=== PATIENT | female | born 1990 ===

== ENCOUNTER 2020-07-08 10:15 | Outpatient (RCR) | payer OTHER, SELFPAY ==
[2020-06-20 11:55] VITALS: BMI 28.3
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
--- NOTE | 2020-06-24 12:56 | PC.NURSE ---
Called patient to let her know that the PA on Vraylar has been approved. In addition, patient reported she has a migraine h/a and is going to rest.
--- NOTE | 2020-06-26 16:11 | PC.NURSE ---
Pt called, and I spoke to her about aftercare. She agreed to a referral to [facility]. With her permission, I called [facility], spoke to Neli, and put in a referral.
--- NOTE | 2020-06-27 10:52 | PC.NURSE ---
Patient called out sick today stated she was vomiting all night. Reviewed with Brenda Gutierrez patient to stop taking Vraylar. Patient stated the medication 2 days aog. Spoke to Rosibel and told her to stop the Vraylar. She stated she has not vomited since last night and she has been sleeping. Encouraged patient to drink fluids and if she continues vomiting to call her PCP. Patient agreed. Asked if patient was feeling safe and she stated she was. Patient plans on coming to the program on Tuesday and will f/u with the PHP prescriber next week.
--- NOTE | 2020-06-27 14:28 | HO.PHPPROGNO ---
Subjective Subjective Date of Service: 06/27/20 Reason For Visit: depression Interim History: Pt continues to endorse depressed mood, anhedonia, poor slee. She reports taking vraylar x 4 days, having nausea and vomiting, although thinks it may be getting better. Pt advised to continue vraylar as GI side effects may subside. She denies SI. She does reports explosive behaviors a re a problem a long with depressed mood. She has been on trileptal in the past with good effect. We discussed starting trileptal, which she agreed. Medication Compliance: Yes Side effects from medications: Yes (nausea) Attending Groups: Yes Review of Systems Gastrointestinal: Reports nausea Diagnostics Vital Signs (24Hr): Body Mass Index 28.3 Assessment & Plan Assessment & Plan (1) Bipolar disorder: Qualifiers: Active/Remission status: currently active Current bipolar episode type: depressed Current episode severity: moderate Qualified Code(s): F31.32 - Bipolar disorder, current episode depressed, moderate Status: Acute Code(s): F31.9 - Bipolar disorder, unspecified Assessment and Plan: 1. Continue Vraylar 2. Start trileptal 150mg po BID 3. Take ativan at bedtime/ (2) PTSD (post-traumatic stress disorder): Status: Acute Code(s): F43.10 - Post-traumatic stress disorder, unspecified Patient educated on: diagnosis and medication risk/benefits Informed Consent: understands Certification I certify that partial hospital treatment is medically necessary due to the symptoms and problems resulting from the patient's mental illness and the failure to treat the patient at the partial hospital level of care would likely result in the patient requiring inpatient psychiatric care which could not be prevented at a less intensive level of care. Greater than 50% of the session was spent on counseling and/or coordination of care Discharge Plan Discharge Attending provider: Shelton Tam Medications: New Vraylar 3 mg capsule 3 mg PO DAILY Qty: 10 RF: 0 oxcarbazepine [Trileptal] 150 mg tablet 150 mg PO BID Qty: 14 RF: 0 No Action lorazepam 0.5 mg Tablet 0.5 mg PO BID RF: 0 paroxetine HCl [Paxil] 20 mg Tablet 20 mg PO DAILY RF: 0 oxycodone 30 mg Tablet 30 mg PO Q3H PRN (Reason: Pain) RF: 0 albuterol sulfate [ProAir HFA] 90 mcg/actuation Hfa Aerosol Inhaler 2 puff INHALATION Q6H PRN (Reason: Shortness Of Breath) RF: 0 oxycodone [OxyContin] 10 mg Tablet,Oral Only,Ext.Rel.12 Hr 10 mg PO BID RF: 0 Ubrelvy 100 mg Tablet 100 mg PO DAILY RF: 0 Telehealth Telehealth Location of provider rendering services: practice address Location of patient: address on file Patient Identification confirmed using: Name, : Yes Telehealth method: video Patient verbally consented to treatment: Yes Patient verbally consented to billing insurance company: Yes Patient informed of any privacy concerns related to visit: Yes Time spent with patient (mins): 15
--- NOTE | 2020-06-30 16:38 | HO.PHPPROGNO ---
Subjective Subjective Date of Service: 06/30/20 Reason For Visit: depression Interim History: Reports some improvement, symptoms are a little better. Main symptoms are depression and anger- you know the little things that there is no reason to be angry . Finding PHP helpful Sleep she reports is improving Appetite has increased to 2 meals daily Denies SI Denies medical concerns-after first dose of Vraylar expereinced GI SE, retrospectively, pt believes it was a sx of food intolerance as this subsided after this one instance. Discussed Vraylar titration, which she is open to-to manage ongoing mood sx. Trileptal helpful as well-for sleep. Denies substance use Medication Compliance: Yes Side effects from medications: No Attending Groups: Yes Review of Systems Review of Systems Yes all other systems are reviewed and are negative (denies) Psychiatric: Reports depression and Reports mood swings Mental Status Exam Mental Status Exam Patient Appearance: Appropriate Patient Orientation: Person, Place, Time and Situation Level of Consciousness: Alert Patient Behavior: Appropriate, Talkative and Cooperative Mood Description: Flat Affect Description: Flat Patient Cognition Impaired: No Ability to Follow Directions: Good Speech Pattern: Spontaneous Speech Memory Description: Intact Hallucinations: None Delusions: Not Present Thought Process: Intact Thought Content: positive for Intact Depressive Symptoms: Increased Irritability, Changes in Appetite and Thoughts of /Suicide (denies) Judgement: Good Diagnostics Vital Signs (24Hr): Body Mass Index 28.3 Assessment & Plan Assessment & Plan (1) Bipolar disorder: Qualifiers: Active/Remission status: currently active Current bipolar episode type: depressed Current episode severity: moderate Qualified Code(s): F31.32 - Bipolar disorder, current episode depressed, moderate Status: Acute Code(s): F31.9 - Bipolar disorder, unspecified Assessment and Plan: -Increase Vraylar from 3 mg HS to 4.5 mg HS (2) PTSD (post-traumatic stress disorder): Status: Acute Code(s): F43.10 - Post-traumatic stress disorder, unspecified Certification I certify that partial hospital treatment is medically necessary due to the symptoms and problems resulting from the patient's mental illness and the failure to treat the patient at the partial hospital level of care would likely result in the patient requiring inpatient psychiatric care which could not be prevented at a less intensive level of care. Greater than 50% of the session was spent on counseling and/or coordination of care Discharge Plan Discharge Attending provider: Shelton Tam Medications: New oxcarbazepine [Trileptal] 150 mg tablet 150 mg PO BID Qty: 14 RF: 0 Vraylar 4.5 mg capsule 4.5 mg PO DAILY Qty: 14 RF: 0 No Action lorazepam 0.5 mg Tablet 0.5 mg PO BID RF: 0 paroxetine HCl [Paxil] 20 mg Tablet 20 mg PO DAILY RF: 0 oxycodone 30 mg Tablet 30 mg PO Q3H PRN (Reason: Pain) RF: 0 albuterol sulfate [ProAir HFA] 90 mcg/actuation Hfa Aerosol Inhaler 2 puff INHALATION Q6H PRN (Reason: Shortness Of Breath) RF: 0 oxycodone [OxyContin] 10 mg Tablet,Oral Only,Ext.Rel.12 Hr 10 mg PO BID RF: 0 Ubrelvy 100 mg Tablet 100 mg PO DAILY RF: 0 Telehealth Telehealth Location of provider rendering services: practice address Location of patient: address on file Patient Identification confirmed using: Name, : Yes Telehealth method: video Patient verbally consented to treatment: Yes Patient verbally consented to billing insurance company: Yes Patient informed of any privacy concerns related to visit: Yes Time spent with patient (mins): 15
--- NOTE | 2020-07-01 14:31 | PC.NURSE ---
I called [facility] and they informed me of pt's followup appts for therapy and med management. I called pt and informed her of her appts as well. (See Discharge note for appt times and dates).
--- NOTE | 2020-07-03 12:01 | PC.NURSE ---
Patient called this morning with c/o blurred vision. Patient attributes this to Vraylar medication and stated the medication was increased to 4.5 mg daily. She stated she did not take the medication last night as a result of the side effect. Joceline Damian APRN is aware and has a telehealth appointment with patient at 1300 today to f/u.
--- NOTE | 2020-07-03 17:17 | P.EN_ITS ---
Event Note Date of Service: 07/03/20 Event Note: Pt reports blurred vision. As a result she held Vraylar sandoval mccoy ng. Reports that when her dosage increased to 4.5 mg symptoms became worse. She would like to stop it and continue with Trileptal as she is more familiar with this medication.
--- NOTE | 2020-07-07 13:27 | HO.PHPPROGNO ---
Subjective Subjective Date of Service: 07/07/20 Reason For Visit: depression Interim History: The patient reported that she had blurred vision with Vraylar and she has stopped it. She is only Trileptal 150 mg po bid and she reported no new symptoms. She reported feeling better only with Trileptal. Medication Compliance: Yes Side effects from medications: Yes Review of Systems Review of Systems Yes all other systems are reviewed and are negative, unobtainable due to endotracheal tube, Unobtainable due to mental condition, Unobtainable due to mental status and Other Mental Status Exam Mental Status Exam Patient Orientation: Person, Place, Time and Situation Level of Consciousness: Awake Patient Behavior: Appropriate Mood Description: Calm Affect Description: Calm Patient Cognition Impaired: No Ability to Follow Directions: Good Speech Pattern: Clear Memory Description: Intact Hallucinations: None Delusions: Not Present Diagnostics Vital Signs (24Hr): Body Mass Index 28.3 Assessment & Plan Certification I certify that partial hospital treatment is medically necessary due to the symptoms and problems resulting from the patient's mental illness and the failure to treat the patient at the partial hospital level of care would likely result in the patient requiring inpatient psychiatric care which could not be prevented at a less intensive level of care. Greater than 50% of the session was spent on counseling and/or coordination of care Discharge Plan Discharge Attending provider: Shelton Tam Additional Instructions: Phone appt for intake for therapist at [facility] is on 07/10/2020 at 9am. Phone appt for psychiatric evaluation with Yaya Fu at [facility] on 07/23/2020. Phone appt for med management followup with Yaya Fu at [facility] is on 09/11/2020 at 3pm. Medications: New oxcarbazepine [Trileptal] 150 mg tablet 150 mg PO BID Qty: 14 RF: 0 Continued lorazepam 0.5 mg Tablet 0.5 mg PO BID RF: 0 paroxetine HCl [Paxil] 20 mg Tablet 20 mg PO DAILY RF: 0 oxycodone 30 mg Tablet 30 mg PO Q3H PRN (Reason: Pain) RF: 0 albuterol sulfate [ProAir HFA] 90 mcg/actuation Hfa Aerosol Inhaler 2 puff INHALATION Q6H PRN (Reason: Shortness Of Breath) RF: 0 oxycodone [OxyContin] 10 mg Tablet,Oral Only,Ext.Rel.12 Hr 10 mg PO BID RF: 0 Discontinued Ubrelvy 100 mg Tablet 100 mg PO DAILY RF: 0 Telehealth Telehealth Location of provider rendering services: practice address Location of patient: address on file Patient Identification confirmed using: Name, : Yes Telehealth method: voice only Patient verbally consented to treatment: Yes Patient verbally consented to billing insurance company: Yes Patient informed of any privacy concerns related to visit: Yes Time spent with patient (mins): 20
== END 2020-07-08 23:55 | disposition home or self-care (01) ==
LOC: HO.PHPA 10:15
PROVIDERS: Visit Provider Psychiatry & Neurology Psychiatry
DX: F43.10 Post-traumatic stress disorder, unspecified (principal); F31.32 Bipolar disorder, current episode depressed, moderate
CPT/HCPCS: 90791; 90853; 99213

== ENCOUNTER 2022-11-05 11:08 | Emergency (ER) | payer OTHER, SELFPAY ==
--- NOTE | ~2022-11-05 | XR_ITS ---
EXAMINATION: XR CHEST CLINICAL INFORMATION: Chest pain. COMPARISON: 08/17/2015 chest radiographs. TECHNIQUE: 2 views of the chest were obtained. FINDINGS: The lungs are clear. There are no pleural effusions. The heart and mediastinal structures are unremarkable. Mild thoracic dextro scoliosis without significant change. XR/XR chest 2V IMPRESSION: No acute cardiopulmonary process.
--- NOTE | 2022-11-05 11:11 | ED.GENADULT ---
HPI - General Adult General Chief complaint: Chest Pain Stated complaint: chest pain Time Seen by Provider: 11/05/22 12:45 Source: patient Mode of arrival: ambulatory Limitations: no limitations History of Present Illness HPI narrative: Patient is a 32 year old assigned female at with a history of kidney disease, asthma, and PTSD presenting to the emergency department today with chest pain. Patient states that she has been having central chest pain over the last 3 days that does not radiate anywhere. Patient denies any dizziness, lightheadedness, abdominal pain, nausea, vomiting, fever, chills, blurry vision, double vision, loss of vision, difficulty breathing, shortness of breath, back pain, night sweats, pain with urination, increased urinary frequency, increased urinary urgency, blood in her urine or stool, syncope or a near syncopal episode, recent trauma or falls, bowel incontinence, bladder incontinence, bowel retention, bladder retention, or any other complaints at this time. Onset (ago): day(s) (3) Location: chest Radiation: non-radiation Severity: mild Severity scale (1-10): 4 Quality: aching and dull Pain Consistency: constant Relieving factors: none Exacerbating factors: none Associated symptoms: chest pain Treatments prior to arrival: none Related Data Home Medications Medication Instructions Recorded Confirmed albuterol sulfate 90 mcg/actuation 2 puff inhalation Q6H PRN 06/20/20 06/20/20 aerosol inhaler (ProAir HFA) Shortness Of Breath lorazepam 0.5 mg tablet 0.5 mg PO BID 06/20/20 06/20/20 oxycodone 10 mg tablet,crush 10 mg PO BID 06/20/20 06/20/20 resistant,extended release 12 hr (OxyContin) oxycodone 30 mg tablet 30 mg PO Q3H PRN Pain 06/20/20 06/20/20 paroxetine HCl 20 mg tablet (Paxil) 20 mg PO DAILY 06/20/20 06/20/20 Previous Rx's Medication Instructions Recorded oxcarbazepine 150 mg tablet 150 mg PO BID #14 tabs 06/27/20 (Trileptal) cyclobenzaprine 5 mg tablet 5 mg PO TID PRN muscle spasm 7 11/05/22 days #21 tabs omeprazole 20 mg capsule,delayed 20 mg PO DAILY #14 caps 11/05/22 release Allergies Allergy/AdvReac Type Severity Reaction Status Date / Time clindamycin [CLINDAMYCIN] Allergy Unknown ANAPHYLAXIS Unverified 12/27/19 15:57 NSAIDS (Non-Steroidal Allergy Unknown kidney Unverified 12/27/19 15:57 Anti-Inflamma issues [NSAIDS (NON-STEROIDAL ANTI-INFLAMMA] zolpidem [ZOLPIDEM] Allergy Unknown HALLUCINATE Unverified 12/27/19 15:57 cariprazine [From Vraylar] AdvReac Intermediate Blurring Verified 07/03/20 17:22 of vision-increased at dosage of 4.5 mg Clindamycin HCl Allergy Unknown swollen Uncoded 08/23/16 00:00 throat Review of Systems Constitutional: Constitutional: Reports no additional constitutional complaints, Denies chills, Denies fever(s) and Denies night sweats Eyes: Eyes: Reports no additional eye complaints, Denies blurry vision, Denies change in vision, Denies diplopia, Denies eye discharge, Denies loss of vision and Denies eye pain ENT: Denies dizziness Cardiovascular: Cardiovascular: Reports no additional cardiovascular complaints, Denies chest pain, Denies lightheadedness, Denies Loss of Consciousness and Denies dyspnea Respiratory: Respiratory: Reports no additional respiratory complaints and Denies dyspnea Gastrointestinal: Gastrointestinal: Reports no additional gastrointestinal complaints, Denies abdominal pain, Denies melena, Denies hematochezia, Denies change in bowel habits and Denies change in stool character Genitourinary: Genitourinary: Denies hematuria, Denies urinary frequency, Denies dysuria, Denies urinary incontinence, Denies urinary hesitancy and Denies urinary urgency Musculoskeletal: Musculoskeletal: Reports no additional musculoskeletal complaints, Denies numbness and Denies tingling Neurologic: Denies dizziness, Denies loss of vision, Denies numbness and Denies tingling Psychiatric: Psychiatric: Reports no additional psychiatric complaints Endocrine: Endocrine: Reports no additional endocrine complaints Hematologic/Lymphatic: Hematologic/Lymphatic: Reports no additional hematologic/lymphatic complaints Allergic/Immunologic: Allergic/Immunologic: Reports no additional allergic/immunologic complaints PMFSH Past Medical History Attestation statement: The following information was validated with the patient. Source: old records reviewed and nursing notes reviewed Medical History Anemia Arthritis Asthma Bipolar disorder Cervical cancer IgA nephropathy Kidney disease Migraine Nutcracker phenomenon of renal vein PTSD (post-traumatic stress disorder) Recurrent hematuria Recurrent UTI Surgical History H/O tubal ligation History of kidney surgery History of tonsillectomy Hx of appendectomy S/P LEEP of cervix Social History Social History Household Members: Family Cigarettes Per Day: 10 Years Smoked: Since age 16 Advance Directives: No Advance Directives Information Provided: No Physical Exam ED Vital Signs: Vital Signs - 24 hr 11/05/22 11:12 Temperature 97.9 F Pulse Rate 79 Respiratory Rate 18 Blood Pressure 109/77 Pulse Oximetry 99 Oxygen Delivery Method Room Air BMI result Body Mass Index 29.3 Const General: cooperative, no acute distress, alert and awake Nutritional Appearance: well nourished Orientation/consciousness: patient oriented x3 Limitations: no limitations HENMT Head: Yes normal to inspection and Yes atraumatic Ears: hearing grossly normal bilaterally and external ears normal General nose exam: Normal external nose present, no nasal discharge noted and no epistaxis Face and sinus: Yes normal facial exam, No abrasion and No laceration Mouth: Normal oral and palatal mucosa present, no drooling and no muffled voice Eyes General: appearance normal, both eyes and all related structures Periorbital: periorbital findings normal Eyelids: Yes eyelids normal Conjunctivae: conjunctivae normal Pupils: Equal, round and reactive pupils present EOM: EOMs intact bilaterally Neck Neck: Yes normal visual inspection, Yes full ROM and Yes no lymphadenopathy Chest Chest palpation & inspection: normal inspection of the chest Resp Effort & Inspection: normal respiratory effort and able to speak in complete sentences Auscultation: clear to auscultation bilaterally Cardio Rate: regular rate Rhythm: regular rhythm GI Inspection: Yes normal to inspection Neuro General: patient oriented x3 and moves all extremities Cranial nerves: Yes Equal, round and reactive pupils present Cognition (Neuro): normal cognition Motor exam (neuro): 5/5 motor strength present throughout Sensory Exam: Normal double simultaneous stimulation for sensation Coordination: ohltbi-it-dopt test normal Extrem General: Yes normal to inspection, Yes full ROM and Yes capillary refill normal Psych Appearance: grossly normal Mental Status: mental status grossly normal Affect: normal affect Attitude: cooperative Thought process: Normal thought process present Thought content: Normal thought content present Insight: Good insight present (Psych) Course Course Course Narrative: This is a rapid medical exam: Additional HPI, ROS, PE not included below will be deferred to primary provider. Patient is a 32-year-old female presenting to the ED with complaint of three days of chest pain and pressure between shoulder blades but pain does not go through to her back. Denies personal or family history of blood clots. Has tried splinting with pillow without relief. Plan: EKG, labs, CXR Medical Decision Making Medical Decision Making [facility] Narrative: Patient is a 32 year old assigned female at with a history of PTSD, asthma, and kidney disease presenting to the emergency department today with central chest pain. Patient's physical exam was unremarkable. Patient's blood work was unremarkable. Patient's urine showed no acute process. Patient's EKG was unremarkable. Patient's chest x-ray showed no acute process. I explained my physical exam findings as well as all test results to the patient. I answered all questions asked by the patient. Patient's clinical presentation is consistent with atypical chest pain. Will treat as musculoskeletal vs. GERD. I stressed the importance of the patient taking her medication as prescribed. I stressed the importance of the patient following up with her primary care provider. I stressed the importance of the patient returning to the emergency department immediately if her symptoms were to worsen or if she were to develop any dizziness, shortness of breath, difficulty breathing, chest pain, blurry vision, loss of vision, nausea, vomiting, abdominal pain, fever, chills, back pain, or any other complaints. Patient verbalized agreement and understanding with this treatment plan and discharge. Differential Diagnosis Differential Diagnoses: The differential diagnosis associated with the presentation includes Chest pain NSTEMI STEMI GERD Musculoskeletal pain Admission/Observation Consideration of admission/observation: Escalation of care including admission/observation considered Patient would have been admitted to the hospital had her work up had any findings where hospital admission was appropriate and her clinical presentation warranted hospital admission. Lab Data [facility] Lab Attestation statement: I reviewed the patient's lab results. My interpretation of these studies and their corresponding values is that they are grossly normal. 11/05/22 11:36 11/05/22 11:36 Labs: Lab Results 11/05/22 11/05/22 11/05/22 Range/Units 11:35 11:35 11:36 WBC 4.9 (4.8-10.8) X10*3/uL RBC 4.34 (4.20-5.50) X10*6/uL Hgb 13.5 (12.0-16.0) g/dl Hct 38.2 (37.0-47.0) % MCV 88.0 (80.0-98.0) fL MCH 31.1 (27.0-33.0) pg MCHC 35.3 H (31.0-35.0) g/dl RDW 13.2 (11.0-16.0) % Plt Count 256 (160-400) X10*3/uL MPV 10.3 (9.4-12.3) fL Immature Gran % (Auto) 0.2 (0.0-0.4) % Neut % (Auto) 45.6 (45-73) % Lymph % (Auto) 41.2 H (20-40) % Linn % (Auto) 10.7 (2-11) % Eos % (Auto) 1.9 (0-4) % Baso % (Auto) 0.4 (0-2) % Lymph # (Auto) 2.0 (1.2-4.9) X10*3/uL Linn # (Auto) 0.5 (0.1-1.2) X10*3/uL Eos # (Auto) 0.1 (0.0-0.4) X10*3/uL Baso # (Auto) 0.0 (0.0-0.2) X10*3/uL Abs Immat Gran (auto) 0.01 (0.00-0.03) X10*3/uL Absolute Neuts (auto) 2.2 (2.0-8.3) x10*3/uL Absolute Nucleated RBC 0.000 (0.0-0.012) X10*3/uL Nucleated RBC % (auto) 0.0 (0.0-0.2) /100WBC PT (11.1-13.3) SEC INR (0.9-1.1) Sodium (135-145) mmol/L Potassium (3.3-5.1) mmol/L Chloride (96-108) mmol/L Carbon Dioxide (22-29) mmol/L Anion Gap (12-20) BUN (9-16) mg/dL Creatinine (0.5-1.4) mg/dL Estim Creat Clear Calc Estimated GFR Random Glucose (60-115) mg/dL Calcium (8.4-10.2) mg/dL Troponin I High Sens < 2.7 (<3.5-17.0) ng/L Beta HCG, Quant < 2 mIU/mL 11/05/22 11/05/22 Range/Units 11:36 11:36 WBC (4.8-10.8) X10*3/uL RBC (4.20-5.50) X10*6/uL Hgb (12.0-16.0) g/dl Hct (37.0-47.0) % MCV (80.0-98.0) fL MCH (27.0-33.0) pg MCHC (31.0-35.0) g/dl RDW (11.0-16.0) % Plt Count (160-400) X10*3/uL MPV (9.4-12.3) fL Immature Gran % (Auto) (0.0-0.4) % Neut % (Auto) (45-73) % Lymph % (Auto) (20-40) % Linn % (Auto) (2-11) % Eos % (Auto) (0-4) % Baso % (Auto) (0-2) % Lymph # (Auto) (1.2-4.9) X10*3/uL Linn # (Auto) (0.1-1.2) X10*3/uL Eos # (Auto) (0.0-0.4) X10*3/uL Baso # (Auto) (0.0-0.2) X10*3/uL Abs Immat Gran (auto) (0.00-0.03) X10*3/uL Absolute Neuts (auto) (2.0-8.3) x10*3/uL Absolute Nucleated RBC (0.0-0.012) X10*3/uL Nucleated RBC % (auto) (0.0-0.2) /100WBC PT 12.1 (11.1-13.3) SEC INR 1.0 (0.9-1.1) Sodium 137 (135-145) mmol/L Potassium 3.8 (3.3-5.1) mmol/L Chloride 106 (96-108) mmol/L Carbon Dioxide 22 (22-29) mmol/L Anion Gap 13 (12-20) BUN 9 (9-16) mg/dL Creatinine 0.89 (0.5-1.4) mg/dL Estim Creat Clear Calc 74.8 Estimated GFR > 60 Random Glucose 90 (60-115) mg/dL Calcium 9.0 (8.4-10.2) mg/dL Troponin I High Sens (<3.5-17.0) ng/L Beta HCG, Quant mIU/mL Independent Interpretation I performed an independent interpretation of an: EKG and Plain X-Ray Interpretation: My interpretation is in agreement with the radiologist's impression of this imaging study. EXAMINATION: XR CHEST CLINICAL INFORMATION: Chest pain. COMPARISON: 08/17/2015 chest radiographs. TECHNIQUE: 2 views of the chest were obtained. FINDINGS: The lungs are clear. There are no pleural effusions. The heart and mediastinal structures are unremarkable. Mild thoracic dextro scoliosis without significant change. XR/XR chest 2V IMPRESSION: No acute cardiopulmonary process. Dictated By: Rob Tellez MD Signed By: Electronically signed by Rob Tellez MD 11/05/22 1124 Vent. Rate: 094 BPM ? ? Atrial Rate: 094 BPM P-R Int: 138 ms? QRS Dur: 082 ms QT Int: 348 ms ? ? ? P-R-T Axes: 059 032 035 degrees QTc Int: 435 ms ? Normal sinus rhythm Normal ECG When compared with ECG of 07-NOV-2012 16:31, No significant change was found ? Electronically Signed By:NETO CASTELAN MD Dictated By: Neto Castelan MD Signed By: Electronically signed by Neto Castelan MD 11/05/22 2415 Radiology Impression Discussion of test interpretation with radiology: I have reviewed the radiologist's reading. Discharge Plan Discharge Clinical Impression: Atypical chest pain Patient Disposition: Home, Self-Care Instructions: Chest Pain (ED) Additional Instructions: Follow up with your primary care provider. Return to the emergency department immediately if your symptoms worsen or if you develop any dizziness, shortness of breath, difficulty breathing, chest pain, blurry vision, loss of vision, nausea, vomiting, abdominal pain, fever, chills, back pain, or any other complaints. Prescriptions: New cyclobenzaprine 5 mg tablet 5 mg PO TID PRN (Reason: muscle spasm) 7 Days Qty: 21 0RF omeprazole 20 mg capsule,delayed release(DR/EC) 20 mg PO DAILY Qty: 14 0RF No Action lorazepam 0.5 mg Tablet 0.5 mg PO BID paroxetine HCl [Paxil] 20 mg Tablet 20 mg PO DAILY oxycodone 30 mg Tablet 30 mg PO Q3H PRN (Reason: Pain) albuterol sulfate [ProAir HFA] 90 mcg/actuation Hfa Aerosol Inhaler 2 puff INHALATION Q6H PRN (Reason: Shortness Of Breath) oxycodone [OxyContin] 10 mg Tablet,Oral Only,Ext.Rel.12 Hr 10 mg PO BID oxcarbazepine [Trileptal] 150 mg tablet 150 mg PO BID Qty: 14 0RF Referrals: [facility] [place] Family Medicine [Provider Group] (Call to establish and follow up with a primary care provider. If you already have a primary care provider, please follow up with them.) [facility] [Provider Group] (Call to establish and follow up with a primary care provider. If you already have a primary care provider, please follow up with them.) [facility] [Provider Group] (Call to establish and follow up with a primary care provider. If you already have a primary care provider, please follow up with them.) Stand Alone Forms: Work/School Release Interventions: ED Discharge Assessment Last Done: 11/05/22 13:00 Discharge Date/Time: 11/05/22 13:00 Print Language: Welsh
[2022-11-05 11:12] VITALS: BP 109/77; PULSE 79; RESP 18; TEMP 36.6; O2SAT 99; BMI 29.3
--- NOTE | 2022-11-05 11:12 | ECG_ITS ---
Test Reason : cp Blood Pressure : / mmHG Vent. Rate : 094 BPM Atrial Rate : 094 BPM P-R Int : 138 ms QRS Dur : 082 ms QT Int : 348 ms P-R-T Axes : 059 032 035 degrees QTc Int : 435 ms Normal sinus rhythm Normal ECG When compared with ECG of 07-NOV-2012 16:31, No significant change was found Referred By: Kathy Harman Electronically Signed By:KEELY MARTINEZ MD
[2022-11-05 11:43] LABS: MANUAL DIFF FLAG NO
[2022-11-05 11:45] LABS: Basophils Percent Auto 0.4 % (0-2); Eosinophils Absolute Auto 0.1 X10*3/uL (0.0-0.4); Eosinophils Percent Auto 1.9 % (0-4); Hematocrit 38.2 % (37.0-47.0); Hemoglobin 13.5 g/dl (12.0-16.0); Imm Gran Abs Auto 0.01 X10*3/uL (0.00-0.03); Imm Gran Pct Auto 0.2 % (0.0-0.4); Lymphocytes Percent Auto 41.2 % (20-40); Mean Corpuscular HGB Conc 35.3 g/dl (31.0-35.0); Mean Corpuscular Hemoglobin 31.1 pg (27.0-33.0); Mean Platelet Volume 10.3 fL (9.4-12.3); Monocytes Absolute Auto 0.5 X10*3/uL (0.1-1.2); Monocytes Percent Auto 10.7 % (2-11); Neutrophils Absolute Auto 2.2 x10*3/uL (2.0-8.3); Neutrophils Percent Auto 45.6 % (45-73); Platelet Count 256 X10*3/uL (160-400); Red Blood Count 4.34 X10*6/uL (4.20-5.50); Red Cell Distribution Width 13.2 % (11.0-16.0); White Blood Count 4.9 X10*3/uL (4.8-10.8)
[2022-11-05 11:53] LABS: Prothrombin Time 12.1 SEC (11.1-13.3)
[2022-11-05 12:02] LABS: Anion Gap 13 (12-20); Blood Urea Nitrogen 9 mg/dL (9-16); Carbon Dioxide 22 mmol/L (22-29); Chloride 106 mmol/L (96-108); Creatinine Clr Calc Pharmacy 74.8; Estimated Glomerular Filt Rate > 60; Glucose Random 90 mg/dL (60-115); Potassium 3.8 mmol/L (3.3-5.1); Sodium 137 mmol/L (135-145)
[2022-11-05 12:09] LABS: HCG Quantitative < 2 mIU/mL; Troponin-I High Sensitivity < 2.7 ng/L (<3.5-17.0)
--- OUTSIDE RECORDS SUMMARY | 2022-11-05 12:55 | XMS_ITS | Continuity of Care Document ---
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 Name Role Phone Kirt KIM, Rob Hagan Primary Care Physician Encounter [facility] [place] Date(s): 09/15/21 - 09/15/[address] [id number] Discharge Disposition: A-D/C Home Attending Physician: Jet Birch MD Admitting Physician: Jet Birch MD Referring Physician: Jet Birch MD Allergies, Adverse Reactions, Alerts Substance Reaction Severity Status clindamycin throat swelling Clindamycin adverse reaction Active Contrast Dye 1 Body felt like it was on fire Persist ent Moderate Active NSAIDs CONTAINDICATING DUE TO KIDNEY ISSUES Active zolpidem VISUAL HALLUCINATIONS Active Keflex THROAT CLOSING Active Latex rash Active 1pt reports it makes her feel like her bosy is burning all over Immunizations Given and Recorded Vaccine Date Status Refusal Reason pneumococcal 23-valent vaccine 01/19/18 Given influenza virus vaccine, inactivated 01/19/18 Give n influenza virus vaccine, inactivated 03/02/13 Give n tetanus/diphtheria/pertussis, acel(Tdap) 05/18/13 Given tetanus/diphtheria/pertussis, acel(Tdap) 08/15/10 Given Not Given Vaccine Date Status Refusal Reason pneumococcal 23-valent vaccine 03/23/17 Not Given Patient Refuses influenza virus vaccine, inactivated 03/23/17 Not Given Patient Refuses Medications chlorhexidine topical 0.12% liquid 15 mL = 0.018 Gm, Swish and Spit, 3 times a day after meals and bedtime, # 420 mL, 1 Refills, Maintenance, 11/12/20 16:45:00 EDT, Oral Rinse, [facility], Partial fill upon patient request if the prescription is for a schedule II opioid drAnalia. Start Date: 11/12/20 Stop Date: 11/26/20 Status: Ordered Lexapro 20 mg oral tablet 1 tablet = 20 mg, By Mouth, Daily in AM, # 30 tablet, 0 Refills, Maintenance, 11/06/20 13:28:00 EDT, Tablet, Partial fill upon patient request if the prescription is for a schedule II opioid drug. Start Date: 11/06/20 Status: Ordered Oxycodone = 30 mg, By Mouth, Every 4 hours, PRN breakthrough pain, 0 Refills, Maintenance, 11/06/20 13:26:00 EDT, Partial fill upon patient request if the prescription is for a schedule II opioid drug. Start Date: 11/06/20 Status: Ordered OxyCODONE IR Tablet 10 mg, Tablet, By Mouth, Every 4 hours, in PACU ONLY, if patient can tolerate PO, PRN for Pain , Moderate, Routine, 09/15/21 8:27:00 EDT Start Date: 09/15/21 Stop Date: 09/15/21 Status: Discontinued OxyCONTIN 10 mg oral tablet, extended release 10 mg, 1, tablet, By Mouth, Every 12 hours, PRN, Refills 0, Tot. Refills 0, Maintenance, Pain , Moderate, 09/11/21 17:18:00 EDT, Partial fill upon patient request if the prescription is for a schedule II opioid drug. Start Date: 09/11/21 Status: Ordered Seroquel 50 mg, By Mouth, Daily at bedtime, Take along with 100mg tablet, Refills 0, Maintenance, 11/06/20 13:29:00 EDT, Partial fill upon patient request if the prescription is for a schedule II opioid drug. Start Date: 11/06/20 Status: Ordered SEROquel 100 mg oral tablet 100 mg, 1, tablet, By Mouth, Daily at bedtime, take along with 50 mg tablet, Refills 0, Maintenance, 09/11/21 17:16:00 EDT, Partial fill upon patient request if the prescription is for a schedule II opioid drug. Start Date: 09/11/21 Status: Ordered Vistaril Capsule = 25 mg, By Mouth, 3 times a day after meals, 0 Refills, Maintenance, 05/21/21 17:56:00 EST, Partial fill upon patient request if the prescription is for a schedule II opioid drug. Start Date: 05/21/21 Status: Ordered Wellbutrin SR 150 mg/12 hours oral tablet, extended release 1 tablet = 150 mg, By Mouth, 2 times a day, # 180 tablet, 0 Refills, Maintenance, 09/15/21 6:26:00 EDT, ER Tablet, Partial fill upon patient request if the prescription is for a schedule II opioid drug. Start Date: 09/15/21 Status: Ordered Problem List Condition Effective Dates Status Health Status Inform ant HGSIL(Confirmed) 1 Active Bipolar disorder(Confirmed) Active Dysplasia of cervix, high gr jaycee BRENDA 2(Confirmed) Active Hematuria syndrome(Confirmed) Active IgA nephropathy(Confirmed) Active Casillas's disease nephrotic syndrome(Confirmed) Active Obese class I(Confirmed) Active 1colpo planned Vital Signs Most recent to oldest [Reference Range]: 1 2 3 Height 150 cm (09/15/21 6:15 AM) 150 cm (09/11/21 5:32 PM) Weight 68.9 kg (09/15/21 6:15 AM) 70 kg (09/11/21 5:32 PM) Oxygen Saturation [94-100 %] 98 % (09/15/21 9:30 AM) 96 % (09/15/21 9:00 AM) 100 % (09/15/21 8:45 AM) Pulse Rate [55-90 bpm] 99 bpm *H* (09/15/21 6:15 AM) Body Mass Index [18.5-24.99] 30.62 *>HHI* (09/15/21 6:15 AM) 31.11 *>HHI* (09/11/21 5:32 PM) Blood Pressure [90-138/55-84 mm Hg] 105/64mm Hg (09/15/21 9:00 AM) 102/63mm Hg (09/15/21 8:45 AM) 108/60mm Hg (09/15/21 8:30 AM) Respiratory Rate [16-30 br/min] 23 br/min (09/15/21 9:04 AM) 13 br/min *L* (09/15/21 9:00 AM) 18 br/min (09/15/21 8:45 AM) Temperature [96.8-100.4 DegF] 97.7 DegF (09/15/21 9:00 AM) 97.5 DegF (09/15/21 8:30 AM) 97.4 DegF (09/15/21 6:15 AM) Liters per Minute 6 L/min (09/15/21 8:45 AM) 6 L/min (09/15/21 8:30 AM) Mode of Delivery (Oxygen) Room air (09/15/21 9:30 AM) Room air (09/15/21 9:00 AM) Simple face mask (09/15/21 8:45 AM) Blood pressure sites Arm, right (09/15/21 8:30 AM) Arm, left (09/15/21 6:15 AM) Temperature Route Temporal (09/15/21 9:00 AM) Temporal (09/15/21 8:30 AM) Temporal (09/15/21 6:15 AM) Dry Weight 68.9 kg (09/15/21 6:15 AM) 70 kg (09/11/21 5:32 PM) Weight Obtained Via Standing scale (09/15/21 6:15 AM) Patient/family stated (09/11/21 5:32 PM) Dry Weight Obtained Via Standing scale (09/15/21 6:15 AM) Patient/family stated (09/11/21 5:32 PM) Social History Social History Type Response Smoking Status Current every day jackelyn souza entered on: 02/18/15 Sex
--- OUTSIDE RECORDS SUMMARY | 2022-11-05 12:55 | XMS_ITS | Continuity of Care Document ---
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 Name Role Phone Kirt KIM, Rob Hagan Primary Care Physician Encounter [facility] [id number] Date(s): 01/07/21 - 02/06/21 [facility] [address], [place] [address] Attending Physician: Rip Reid Admitting Physician: Rip Reid Referring Physician: Rip Reid Allergies, Adverse Reactions, Alerts Substance Reaction Severity Status clindamycin throat swelling Clindamycin adverse reaction Active zolpidem VISUAL HALLUCINATIONS Active Keflex THROAT CLOSING Active Contrast Dye 1 Persistent Moderate Active Latex rash Active NSAIDs CONTAINDICATING DUE TO KIDNEY ISSUES Active 1pt reports it makes her feel [...] prescription is for a schedule II opioid . Start Date: 11/12/20 Stop Date: 11/26/20 Status: Ordered Lexapro 20 mg oral tablet 1 tablet = 20 mg, By Mouth, Daily, # 30 tablet, 0 Refills, Maintenance, 11/06/20 13:28:00 EDT, Tablet, Partial fill upon patient request if the prescription is for a schedule II opioid drug. Start Date: 11/06/20 Status: Ordered LORazepam 1 mg oral tablet 1 tablet = 1 mg, By Mouth, 3 times a day, PRN for anxiety, 0 Refills, Maintenance, 03/22/17 15:42:07, Tablet Start Date: 03/22/17 Status: Ordered nicotine 14 mg/24 hr transdermal film, extended release 1 patch, Topically, Daily, # 30 patch, 0 Refills, Maintenance, 11/06/20 13:30:00 EDT, Patch, Partial fill upon patient request if the prescription is for a schedule II opioid drug. Start Date: 11/06/20 Status: Ordered OXcarbazepine 150 mg oral tablet 150 mg, 1, tablet, By Mouth, 2 times a day, # 60 tablet, Refills 0, Maintenance, 11/06/20 13:29:00 EDT, Partial fill upon patient request if the prescription is for a schedule II opioid drug. Start Date: 11/06/20 Status: Ordered Oxycodone = 30 mg, By Mouth, Every 3 hours, 0 Refills, Maintenance, 11/06/20 13:26:00 EDT, Partial fill upon patient request if the prescription is for a schedule II opioid drug. Start Date: 11/06/20 Status: Ordered OxyContin = 10 mg, By Mouth, Every 12 hours, 0 Refills, Maintenance, 11/06/20 13:27:00 EDT, Partial fill uponpatient request if the prescription is for a schedule II opioid drug. Start Date: 11/06/20 Status: Ordered Seroquel 50 mg, By Mouth, Refills 0, Maintenance, 11/06/20 13:29:00 EDT, Partial fill upon patient request if the prescription is for a schedule II opioid drug. Start Date: 11/06/20 Status: Ordered Problem List Condition Effective Dates Status Health Status Inform ant HGSIL(Confirmed) 1 Active Bipolar disorder(Confirmed) Active Dysplasia of cervix, high gr jaycee BRENDA 2(Confirmed) Active Hematuria syndrome(Confirmed) Active IgA nephropathy(Confirmed) Active Casillas's disease nephrotic syndrome(Confirmed) Active 1colpo planned Social History Social History Type Response Smoking Status Current every day jackelyn souza entered on: 02/18/15 Sex
--- OUTSIDE RECORDS SUMMARY | 2022-11-05 12:55 | XMS_ITS | Continuity of Care Document ---
Author Name Unknown Organization [facility] Address [address] [place] [address]- Care Team Providers Care Web Operations Lead Name Role Phone Kirt KIM, Rob Hagan Primary Care Physician [phone] Encounter [facility] Date(s): 03/13/20 - 04/12/20 [facility] [address], [place] [address] Attending Physician: Rip Reid Admitting Physician: AdmtrRip Referring Physician: Admtr, Ar8 Allergies, Adverse Reactions, Alerts Substance Reaction Severity [...] inactivated 03/23/17 Not Given Patient Refuses Medications famotidine 40 mg oral tablet 1 tablet = 40 mg, By Mouth, Daily, 30 minutes before anything to eat or drink in the am., # 60 tablet, 3 Refills, Maintenance, 03/13/20 8:51:00 EST, Tablet, [facility], Partial fill upon patient request if the prescription is for a schedu... Start Date: 03/13/20 Status: Ordered LORazepam 1 mg oral tablet 1 tablet = 1 mg, By Mouth, 3 times a day, PRN for anxiety, 0 Refills, Maintenance, 03/22/17 15:42:07, Tablet Start Date: 03/22/17 Status: Ordered omeprazole 20 mg oral enteric coated capsule 1 capsule = 20 mg, By Mouth, Daily, # 30 capsule, 4 Refills, Maintenance, 02/15/19 16:53:00 EST Start Date: 02/15/19 Stop Date: 07/15/19 Status: Ordered oxyCODONE 15 mg oral tablet 1 tablet = 15 mg, By Mouth, Every 3 hours, 0 Refills, Maintenance, 01/13/18 9:28:08 EDT Start Date: 01/13/18 Status: Ordered OxyCONTIN 40 mg oral tablet, extended release 40 mg, 1, tablet, By Mouth, 2 times a day, Refills 0, Tot. Refills 0, Maintenance, 01/13/18 9:26:48EDT Start Date: 01/13/18 Status: Ordered PARoxetine 10 mg oral tablet 10 mg, 1, tablet, By Mouth, Daily, Refills 0, Maintenance, 01/13/18 9:26:04 EDT Start Date: 01/13/18 Status: Ordered raNITIdine 150 mg oral tablet 1 tablet = 150 mg, By Mouth, Daily, # 30 tablet, 0 Refills, Maintenance, 02/06/19 11:31:00 EDT Start Date: 02/06/19 Stop Date: 03/08/19 Status: Ordered Problem List Condition Effective Dates [...]
--- OUTSIDE RECORDS SUMMARY | 2022-11-05 12:55 | XMS_ITS | Continuity of Care Document ---
Author Name Unknown Organization [facility] Address [address] [place] [address]- Care Team Providers Care Self Storage Manager Name Role Phone Kirt KIM, Rob Hagan Primary Care Physician Encounter [facility] Date(s): 03/24/20 - 04/23/20 [facility] [address] [place], [place] [address] Allergies, Adverse Reactions, Alerts Substance Reaction Severity [...]
--- OUTSIDE RECORDS SUMMARY | 2022-11-05 12:55 | XMS_ITS | Continuity of Care Document ---
Author Name Unknown Organization [facility] ter Address [address] [place] [id number]- Care Team Providers Care Burial Agent Name Role Phone Kirt KIM, Rob Hagan Primary Care Physician [phone] Encounter [place] Date(s): 11/12/20 - 11/12/[address] [address] Discharge Disposition: A-D/C Home Attending Physician: Yordan Arce DDS, MD Admitting Physician: Yordan Arce DDS, MD Referring Physician: Yordan Arce DDS, MD Allergies, Adverse Reactions, Alerts Substance Reaction Severity Status clindamycin throat swelling Clindamycin adverse reaction Active zolpidem VISUAL HALLUCINATIONS Active Contrast Dye 1 Persistent Moderate Active NSAIDs CONTAINDICATING DUE TO KIDNEY ISSUES Active Keflex THROAT CLOSING Active Latex rash [...] Date: 11/12/20 Stop Date: 11/26/20 Status: Ordered levoFLOXacin 500 mg oral tablet 1 tablet = 500 mg, By Mouth, Every 24 hours, for 5 days, # 5 tablet, 0 Refills, Acute 11/17/20 16:45:00 EDT, 11/12/20 16:45:00 EDT, Tablet, [facility], Partial fill upon patient request if the prescription is for a schedule II opioid drug... Start Date: 11/12/20 Stop Date: 11/17/20 Status: Ordered Lexapro 20 mg oral tablet [...] PO, PRN for Pain , Moderate, Routine, 11/12/20 16:04:00 EDT Start Date: 11/12/20 Stop Date: 11/19/20 Status: Ordered OxyContin = 10 mg, By [...] Casillas's disease nephrotic syndrome(Confirmed) Active 1colpo planned Vital Signs Most recent to oldest [Reference Range]: 1 2 3 4 Height 149.86 cm (11/12/20 2:10 PM) 149.86 cm (11/06/20 2:16 PM) Weight 59.3 kg (11/12/20 2:10 PM) 61.36 kg (11/06/20 2:16 PM) Oxygen Saturation [94-100 %] 99 % (11/12/20 6:00 PM) 99 % (11/12/20 5:45 PM) 98 % (11/12/20 5:30 PM) Pulse Rate [55-90 bpm] 96 bpm *H* (11/12/20 2:10 PM) Body Mass Index [18.5-24.99] 26.4 *H* (11/12/20 2:10 PM) 27.32 *H* (11/06/20 2:16 PM) Blood Pressure [90-138/55-84 mm Hg] 111/72mm Hg (11/12/20 6:00 PM) 105/73mm Hg (11/12/20 5:45 PM) 105/67mm Hg (11/12/20 5:30 PM) Respiratory Rate [16-30 br/min] 12 br/min *L* (11/12/20 6:00 PM) 11 br/min *L* (11/12/20 5:45 PM) 16 br/min (11/12/20 5:31 PM) Temperature [96.8-100.4 DegF] 97.8 DegF (11/12/20 6:00 PM) 97.9 DegF (11/12/20 4:45 PM) 98.0 DegF (11/12/20 2:10 PM) Liters per Minute 5 L/min (11/12/20 5:00 PM) 5 L/min (11/12/20 4:45 PM) Mode of Delivery (Oxygen) Room air (11/12/20 6:00 PM) Room air (11/12/20 6:00 PM) Room air (11/12/20 5:45 PM) Room air (11/12/20 5:45 PM) Blood pressure sites Arm, right (11/12/20 5:00 PM) Arm, right (11/12/20 4:45 PM) Arm, left (11/12/20 2:10 PM) Temperature Route Temporal (11/12/20 6:00 PM) Temporal (11/12/20 4:45 PM) Temporal (11/12/20 2:10 PM) Dry Weight 59.3 kg (11/12/20 2:10 PM) 61.36 kg (11/06/20 2:16 PM) Weight Obtained Via Standing scale (11/12/20 2:10 PM) Dry Weight Obtained Via Standing scale (11/12/20 2:10 PM) Patient/family stated (11/06/20 2:16 PM) Social History Social History Type Response Smoking Status Current every day jackelyn souza entered on: 02/18/15 Sex
--- OUTSIDE RECORDS SUMMARY | 2022-11-05 12:55 | XMS_ITS | Continuity of Care Document ---
Author Name Unknown Organization [facility] ter Address [address] [place] [id number]- Care Team Providers Care Cutter Plastics Rolls Name Role Phone Kirt KIM, Rob Hagan Primary Care Physician Encounter [facility] Date(s): 05/21/21 - 05/21/[address] [address]- Discharge Disposition: A-D/C Walkout Attending Physician: Not on Staff, Attending MD Admitting Physician: Not on Staff, Admitting MD Referring Physician: Not on Staff, Referring MD Allergies, Adverse Reactions, Alerts Substance Reaction [...] opioid drug. Start Date: 11/06/20 Status: Ordered Vistaril Capsule Intramuscular, Every 4 hours, 0 Refills, Maintenance, 05/21/21 17:56:00 EST, Partial fill upon patient request if the prescription is for a schedule II opioid drug. Start Date: 05/21/21 Status: Ordered Problem List Condition Effective Dates Status Health Status Inform ant HGSIL(Confirmed) 1 Active Bipolar disorder(Confirmed) Active Dysplasia of cervix, high gr jaycee BRENDA 2(Confirmed) Active Hematuria syndrome(Confirmed) Active IgA nephropathy(Confirmed) Active Casillas's disease nephrotic syndrome(Confirmed) Active Obese class I(Confirmed) Active 1colpo planned Results Radiology Reports * Exam Date Time Procedure Performing Provider Status 05/21/21 6:14 PM Chest 2 Views Frontal and Lat Bein , D jessie; Auth (Verified) Notes: (Chest 2 Views Frontal and Lat) Reason For Exam: Chest Pain;Other: RESULT: Chest 2 Views Frontal and Lat Chest 2 Views Frontal and Lat INDICATION: Hx of Present Illness: Heart racing, sweats. Has Kidney disease. Checked BP and was elevated to 190's.; Reason: Other:; Chest Pain; Clinical Question(s): Other: COMPARISON: 11/29/2018. FINDINGS: LINES AND TUBES: None. LUNGS AND PLEURA: The lungs are clear and the pulmonary vascularity is normal. No effusion or pneumothorax. HEART, MEDIASTINUM AND JESSICA: Normal. BONES AND SOFT TISSUES: No acute abnormality. IMPRESSION: No acute cardiopulmonary disease. WSN: [id number] Ordering Physician: Roni Lewis Dictated By: Leeanna Arceo MD Dictated Date/Time: 05/21/21 6:17 pm Reviewed By: Leeanna Arceo MD Signed By: Leeanna Arceo MD Signed Date/Time: 05/21/21 6:17 pm Transcribed By: COREY Transcribed Date/Time: 05/21/21 6:15 pm Vital Signs Most recent to oldest [Reference Range]: 1 2 Height 150 cm (05/21/21 5:16 PM) 150 cm (05/21/21 4:55 PM) Weight 70.9 kg (05/21/21 5:16 PM) 70.9 kg (05/21/21 4:55 PM) Oxygen Saturation [94-100 %] 98 % (05/21/21 5:16 PM) Pulse Rate [55-90 bpm] 105 bpm *H* (05/21/21 5:16 PM) Body Mass Index [18.5-24.99] 31.51 *>HHI* (05/21/21 5:16 PM) 31.51 *>HHI* (05/21/21 4:55 PM) Blood Pressure [90-138/55-84 mm Hg] 123/ 87mm Hg (05/21/21 5:16 PM) Respiratory Rate [16-30 br/min] 19 br/mi n (05/21/21 5:16 PM) Temperature [96.8-100.4 DegF] 98.8 DegF (05/21/21 5:16 PM) Mode of Delivery (Oxygen) Room air (05/21/21 5:16 PM) Blood pressure sites Arm, right (05/21/21 5:16 PM) Temperature Route Oral (05/21/21 5:16 PM) Dry Weight 70.9 kg (05/21/21 5:16 PM) 70.9 kg (05/21/21 4:55 PM) Social History Social History Type Response Smoking Status Current every day jackelyn souza entered on: 02/18/15 Sex
== END 2022-11-05 13:00 | disposition home or self-care (01) ==
PROVIDERS: Registered Nurse Emergency; Emergency Provider Emergency Medicine Emergency Medical Services
DX: R07.89 Other chest pain (principal); Z79.899 Other long term (current) drug therapy
CPT/HCPCS: 36415; 71046; 80048; 84484; 84702; 85025; 85610; 93005; 99283

== ENCOUNTER → 2022-11-05 11:12 | Outpatient (BNV) | payer OTHER, SELFPAY | PROVIDERS: Emergency Provider Emergency Medicine Emergency Medical Services; Visit Provider Internal Medicine Cardiovascular Disease | DX: R07.9 Chest pain, unspecified (principal) | CPT/HCPCS: 93010 ==

== ENCOUNTER 2024-01-02 10:37 | Emergency (ER) | payer OTHER, SELFPAY ==
[2024-01-02 10:46] VITALS: BP 147/72; PULSE 102; RESP 18; TEMP 36.9; O2SAT 98; BMI 32.0
[2024-01-02 15:01] VITALS: BP 118/76; PULSE 90; RESP 17; TEMP 36.8; O2SAT 99
--- NOTE | 2024-01-02 15:24 | ED.EAR ---
HPI - Ear Problem General Chief complaint: Ear Problems Stated complaint: having issues with both ears Time Seen by Provider: 01/02/24 15:10 Source: patient and family Mode of arrival: ambulatory Limitations: no limitations History of Present Illness ED Provider: ANAYA JAIN PA-C HPI Narrative: 33-year-old female with past medical history significant for anemia, BPD, PTSD, IgA nephropathy, nutcracker phenomenon of renal vein, asthma, CKD, cervical cancer presents to the ED today with a complaint of bilateral ear discomfort (R>L) x2 days. Admits to using an ear camera at home and noticing little bumps in her ears. States that these have been draining discharge. Since this time reports discomfort primarily within her right ear. No history of similar. Additionally endorses sinus pain with associated green/yellow nasal discharge. Admits to history of sinus infections requiring antibiotics. Her last sinus infection was approximately 4 months ago. States this feels similar. Denies fever, chills, rashes, nausea or vomiting, vision changes, eye pain. MD Complaint: ear pain Location: bilateral Related Data Home Medications ?Medication ?Instructions ?Recorded ?Confirmed albuterol sulfate 90 mcg/actuation 2 puff inhalation Q6H PRN 06/20/20 06/20/20 aerosol inhaler (ProAir HFA) Shortness Of Breath lorazepam 0.5 mg tablet 0.5 mg PO BID 06/20/20 06/20/20 oxycodone 10 mg tablet,crush 10 mg PO BID 06/20/20 06/20/20 resistant,extended release 12 hr (OxyContin) oxycodone 30 mg tablet 30 mg PO Q3H PRN Pain 06/20/20 06/20/20 paroxetine HCl 20 mg tablet (Paxil) 20 mg PO DAILY 06/20/20 06/20/20 Previous Rx's ?Medication ?Instructions ?Recorded oxcarbazepine 150 mg tablet 150 mg PO BID #14 tabs 06/27/20 (Trileptal) cyclobenzaprine 5 mg tablet 5 mg PO TID PRN muscle spasm 7 11/05/22 days #21 tabs omeprazole 20 mg capsule,delayed 20 mg PO DAILY #14 caps 11/05/22 release amoxicillin 875 mg-potassium 1 tab PO BID 7 days #14 tabs 01/02/24 clavulanate 125 mg tablet ciprofloxacin 0.3 %-dexamethasone 4 drp otic (ear) right BID 7 days 01/02/24 0.1 % ear drops,suspension #7.5 mL (Ciprodex) Allergies Allergy/AdvReac Type Severity Reaction Status Date / Time clindamycin [CLINDAMYCIN] Allergy Unknown ANAPHYLAXIS Verified 01/02/24 10:48 NSAIDS (Non-Steroidal Allergy Unknown kidney Verified 01/02/24 10:48 Anti-Inflamma issues [NSAIDS (NON-STEROIDAL ANTI-INFLAMMA] zolpidem [ZOLPIDEM] Allergy Unknown HALLUCINATE Verified 01/02/24 10:48 cariprazine [From Vraylar] AdvReac Intermediate Blurring Verified 01/02/24 10:48 of vision-increased at dosage of 4.5 mg Clindamycin HCl Allergy Unknown swollen Uncoded 01/02/24 10:48 throat Review of Systems Review of Systems: Constitutional: No fever, chills, fatigue, night sweats, weight changes ENT/Mouth: No ear pain, hearing loss, nasal congestion, sinus pain, rhinorrhea, sore throat, +bilateral ear discomfort Eyes: No eye pain, swelling, redness, vision changes, discharge Cardio: No chest pain, palpitations, RICCI, orthopnea, peripheral edema Pulm: No SOB, cough, sputum, wheezing, dyspnea, hemoptysis GI: No nausea, vomiting, hematemesis, abdominal pain, diarrhea, constipation, hematochezia, melena : No irregular bleeding, dysuria, frequency, urgency, hesitancy, hematuria, flank pain, urinary flow changes, urinary incontinence or retention MSK: No back pain, neck pain, joint pain, myalgias Skin: No lesions, rashes Neuro: No weakness, numbness, paresthesias, LOC, dizziness, headache Psych: No anxiety/panic, depression, SI/HI, AH/VH All other systems reviewed and are negative. [facility] Past Medical History Attestation statement: The following information was validated with the patient. Source: old records reviewed and nursing notes reviewed Medical History Recurrent hematuria Anemia Recurrent UTI Bipolar disorder PTSD (post-traumatic stress disorder) Arthritis Migraine IgA nephropathy Nutcracker phenomenon of renal vein Asthma Kidney disease Cervical cancer Surgical History H/O tubal ligation History of kidney surgery History of tonsillectomy S/P LEEP of cervix Hx of appendectomy Social History Social History Household Members: Family Cigarettes Per Day: 10 Years Smoked: Since age 16 Advance Directives: No Advance Directives Information Provided: No Physical Exam Vital Signs: Vital Signs: Last Vital Signs Temp 98.2 F 01/02/24 15:56 Pulse 90 01/02/24 15:56 Resp 17 01/02/24 15:56 BP 118/76 01/02/24 15:56 Pulse Ox 99 01/02/24 15:56 O2 Del Method Room Air 01/02/24 15:56 BMI result Body Mass Index 32.0 Vital signs stable, afebrile General: Well appearing, in no acute distress. Skin: Warm, dry, intact. No rashes or lesions. Head: Normocephalic, atraumatic. EENT: Hearing is intact b/l. Conjunctiva clear. Sclera is anicteric. PERRLA. EOM intact. Moist mucous membranes.?+ttp over b/l maxillary sinuses + No pain on manipulation of left pinna or tragus. No mastoid tenderness. Left EAC without lesions, erythema, edema or discharge. TM intact without erythema, effusion, or bulging. + Pain on manipulation of right pinna. No mastoid tenderness. Right EAC erythematous and edematous without noted discharge or lesions. TM intact without erythema, effusion, or bulging. Neck: Supple without LAD. FROM. Trachea midline.? Cardiac: Chest wall symmetric. RRR Lungs: Normal respiratory effort without accessory muscle use. CTA bilaterally. No rales, rhonchi, or wheezes.? Neuro: AOx3. Normal speech. Ambulating with steady gait. Psych: Appropriate mood and affect. Responds appropriately to questions. Course Course Course Narrative: 1550 -- physical exam consistent with otitis externa of the right ear. Ciprodex ear drops sent to pharmacy. She is also tender to palpation over bilateral maxillary sinuses. Given history of recurrent sinusitis, will send Augmentin to pharmacy for treatment. Patient has remained stable throughout ED visit today. Discussed worrisome signs and symptoms and when to return to the ED. All questions answered at this time. Patient is agreeable with disposition and stable for discharge. Medical Decision Making Medical Decision Making MDM Narrative: 33-year-old female with past medical history significant for anemia, BPD, PTSD, IgA nephropathy, nutcracker phenomenon of renal vein, asthma, CKD, cervical cancer presents to the ED today with a complaint of bilateral ear discomfort (R>L) x2 days. Vital signs stable, afebrile. She is nontoxic-appearing and in no acute distress. She is tender to palpation over bilateral maxillary sinuses. Pain on manipulation of right pinna. No mastoid tenderness. Right EAC erythematous and edematous without noted discharge or lesions. TM intact without erythema, effusion, or bulging. skin w/d/i. no rashes. Differential diagnosis includes otitis media versus otitis externa, sinusitis. Unlikely mastoiditis or malignant otitis externa. Physical exam not consistent with herpes zoster vs [place] syndrome, periorbital or orbital cellulitis. Plan for discharge. Differential Diagnosis Differential Diagnoses: The differential diagnosis associated with the presentation includes As above Admission/Observation Not indicated. External Record Review External record reviewed: Inpatient record Prescription Management I considered prescription management with: Antibiotic (augmentin, ciprodex) Social Determinants Patient?s care significantly limited by Social Determinants of Health including: Other Social Determinant of Health Critical Care Time Critical Care Time Critical Care Time: No Discharge Plan Discharge Clinical Impression: Acute otitis externa of right ear, Sinusitis Patient Disposition: Home, Self-Care Instructions: Sinusitis (ED), Otitis Externa (ED) Additional Instructions: You were evaluated in the ED today for ear pain. The right ear canal appears infected. Ciprodex is a combination antbiotic/steroid that has been sent to your pharmacy for treatment. Instill drops into your ear as prescribed x7 days. You have also been provided with a referral to an Ear/Nose/Throat specialist. Please call them to make an appointment. They will not call you. Augmentin is an antibiotic that has been sent to your pharmacy for treatment of sinus infection. Take this as prescribed. Do not miss any doses or stop taking this early as this may cause infection to persist or worsen. On Augmentin, softer bowel movements are to be expected. Call your provider if you move your bowels more than 4 times a day, your bowel movements are almost all liquid, or you get a rash.? Return to the ED with new or worsening symptoms. In the case of an emergency call 911. Prescriptions: New amoxicillin-pot clavulanate 875-125 mg tablet 1 tab PO BID 7 Days Qty: 14 0RF ciprofloxacin-dexamethasone [Ciprodex] 0.3-0.1 % drops,suspension 4 drp otic (ear) right BID 7 Days Qty: 7.5 0RF No Action lorazepam 0.5 mg Tablet 0.5 mg PO BID paroxetine HCl [Paxil] 20 mg Tablet 20 mg PO DAILY oxycodone 30 mg Tablet 30 mg PO Q3H PRN (Reason: Pain) albuterol sulfate [ProAir HFA] 90 mcg/actuation Hfa Aerosol Inhaler 2 puff INHALATION Q6H PRN (Reason: Shortness Of Breath) oxycodone [OxyContin] 10 mg Tablet,Oral Only,Ext.Rel.12 Hr 10 mg PO BID oxcarbazepine [Trileptal] 150 mg tablet 150 mg PO BID Qty: 14 0RF cyclobenzaprine 5 mg tablet 5 mg PO TID PRN (Reason: muscle spasm) 7 Days Qty: 21 0RF omeprazole 20 mg capsule,delayed release(DR/EC) 20 mg PO DAILY Qty: 14 0RF Referrals: Joselito Chen [Physician] - Stand Alone Forms: Work/School Release Interventions: ED Discharge Assessment Last Done: 01/02/24 15:56 Discharge Date/Time: 01/02/24 15:56 Print Language: Turkish
[2024-01-02 15:56] VITALS: BP 118/76; PULSE 90; RESP 17; TEMP 36.8; O2SAT 99
== END 2024-01-02 15:56 | disposition home or self-care (01) ==
PROVIDERS: Emergency Provider Emergency Medicine Emergency Medical Services
DX: H60.91 Unspecified otitis externa, right ear (principal); H92.03 Otalgia, bilateral; J32.9 Chronic sinusitis, unspecified
CPT/HCPCS: 99282; 99283

== ENCOUNTER 2024-09-13 11:07 | Emergency (ER) | payer OTHER, SELFPAY ==
[2024-09-13 11:46] VITALS: BP 133/88; PULSE 112; RESP 18; TEMP 36.8; O2SAT 93; BMI 30.3
--- NOTE | 2024-09-13 11:47 | ED_ITS ---
HPI - Allergic Reaction General Chief complaint: Allergic Reaction Stated complaint: Allergic reaction to meds Time Seen by Provider: 09/13/24 13:45 Source: patient Mode of arrival: ambulatory Limitations: no limitations History of Present Illness ED Provider: Leigh Ann Bahena PA-C HPI narrative: 34-year-old female with medical history of bipolar disorder, PTSD, anemia, asthma, CKD, cervical cancer, presents to the ED due to throat tightness and right-sided flank pain. Patient states that she was started on keflex for kidney infection by her occupational therapy manager on 09/10. She states later that night after her 1st dose of antibiotic she began to experience sore throat and swelling making it difficult to swallow. She reports taking 7 doses of the antibiotic and stopped taking the medication yesterday. Did not finish the course of Keflex. She reports persistent R sided flank pain. She states she has not take any diuretic medication. Denies chest pain, shortness of breath, nausea, vomiting, fever, chills, diarrhea, black/tarry stool, urinary symptoms MD complaint: other (Sore throat, right flank pain) Onset (ago): day(s) (3) Symptoms: difficulty swallowing Severity: mild Treatment prior to arrival: none Previous Allergic Reaction History: none Related Data Home Medications ?Medication ?Instructions ?Recorded ?Confirmed albuterol sulfate 90 mcg/actuation 2 puff inhalation Q6H PRN 06/20/20 06/20/20 aerosol inhaler (ProAir HFA) Shortness Of Breath lorazepam 0.5 mg tablet 0.5 mg PO BID 06/20/20 06/20/20 oxycodone 10 mg tablet,crush 10 mg PO BID 06/20/20 06/20/20 resistant,extended release 12 hr (OxyContin) oxycodone 30 mg tablet 30 mg PO Q3H PRN Pain 06/20/20 06/20/20 paroxetine HCl 20 mg tablet (Paxil) 20 mg PO DAILY 06/20/20 06/20/20 Previous Rx's ?Medication ?Instructions ?Recorded oxcarbazepine 150 mg tablet 150 mg PO BID #14 tabs 06/27/20 (Trileptal) cyclobenzaprine 5 mg tablet 5 mg PO TID PRN muscle spasm 7 11/05/22 days #21 tabs omeprazole 20 mg capsule,delayed 20 mg PO DAILY #14 caps 11/05/22 release amoxicillin 875 mg-potassium 1 tab PO BID 7 days #14 tabs 01/02/24 clavulanate 125 mg tablet ciprofloxacin 0.3 %-dexamethasone 4 drp otic (ear) right BID 7 days 01/02/24 0.1 % ear drops,suspension #7.5 mL (Ciprodex) clotrimazole 10 mg nayana 10 mg mucous membrane TID #21 tabs 09/13/24 nitrofurantoin 100 mg PO BID #14 caps 09/13/24 monohydrate/macrocrystals 100 mg capsule (Macrobid) Allergies Allergy/AdvReac Type Severity Reaction Status Date / Time clindamycin [CLINDAMYCIN] Allergy Unknown ANAPHYLAXIS Verified 09/13/24 11:46 NSAIDS (Non-Steroidal Allergy Unknown kidney Verified 09/13/24 11:46 Anti-Inflamma issues [NSAIDS (NON-STEROIDAL ANTI-INFLAMMA] zolpidem [ZOLPIDEM] Allergy Unknown HALLUCINATE Verified 09/13/24 11:46 cariprazine [From Vraylar] AdvReac Intermediate Blurring Verified 09/13/24 11:46 of vision-increased at dosage of 4.5 mg Clindamycin HCl Allergy Unknown swollen Uncoded 09/13/24 11:46 throat Review of Systems 2 Review of Systems: CONST: Negative for fever, body aches and chills. HENT: Negative for neck pain/stiffness, headache, congestion, swelling. POS sore/swollen throat EYES: Negative for discharge/pain or vision changes. RESP: Negative for cough/hemoptysis and shortness of breath. CV: Negative chest pain, difficulty breathing, palpitations. ABD: Negative pain, nausea, vomiting. R flank pain : Negative increase frequency, dysuria, blood in urine or stool. MUSC: Negative for muscle aches, edema. SKIN: Negative rash, lesions/sores. NEURO: Negative headache, dizziness, weakness. Yes all other systems are reviewed and are negative PMFSH Past Medical History Attestation statement: The following information was validated with the patient. Source: old records reviewed, obtained from family ( at bedside corroborating history) and nursing notes reviewed Medical History Recurrent hematuria Anemia Recurrent UTI Bipolar disorder PTSD (post-traumatic stress disorder) Arthritis Migraine IgA nephropathy Nutcracker phenomenon of renal vein Asthma Kidney disease Cervical cancer Surgical History H/O tubal ligation History of kidney surgery History of tonsillectomy S/P LEEP of cervix Hx of appendectomy Social History Social History Household Members: Family Cigarettes Per Day: 10 Years Smoked: Since age 16 Smoked in Last 30 Days: Yes Use of substances other than those prescribed or required for medical reasons: No Advance Directives: No Advance Directives Information Provided: Yes Patient : No Physical Exam ED Vital Signs: Vital Signs - 24 hr 09/13/24 11:46 09/13/24 14:07 Temperature 98.2 F 98.7 F Pulse Rate 112 H 97 Respiratory Rate 18 19 Blood Pressure 133/88 142/86 H Pulse Oximetry 93 97 Oxygen Delivery Method Room Air Room Air BMI result Body Mass Index 30.3 GENERAL APPEARANCE: ?AxOx4, generally well-appearing, no acute distress. HEENT: ?NC, AT. MMM. EOMI, clear conjunctiva, oropharynx with erythema and white patchy exudate, tongue with white patchy exudate. HEART:? Tachycardic rate and regular rhythm, normal S1/S1, no m/r/g LUNGS:? CTAB, moving air well. No crackles or wheezes are heard. ABDOMEN: ?Soft, nontender, nondistended with good bowel sounds heard. BACK: R side CVA tenderness, no obvious deformity. EXTREMITIES: ?Without cyanosis, clubbing or edema. NEUROLOGICAL: ?Grossly nonfocal. Alert and oriented, moving all 4 extremities. Observed to ambulate with normal gait. Skin: ?Warm and dry without any rash. Course Course Course Narrative: This is a Rapid Medical Exam performed in triage by Regi Haddad PA-C. Full HPI, ROS and PE to be performed by primary ED provider. 34 yo F w/PMHx Asthma, anemia, PTSD, bipolar presenting to the ED c/o suspected allergic rxn to Keflex - was started on Keflex by Urology for kidney infection . Admits to sore throat/difficulty swallowing s/p taking medication. Last took Keflex 2 days ago & does not feel sx are improving (admits to taking 2 days of meds - total 7 pills). Admits to fever but suspected due to renal infection. denies Rash, sick contacts PE: posterior oropharyngeal erythema & swelling, uvula midline talking in complete sentences Plan: SARs, rapid strep >1355-- on re-evaluation neck appears mildly swollen and erythematous externally. Patient also reporting continued right kidney pain with known infection. Will need bed in the ED and labs / +/-imaging. low suspicion for severe sepsis at this time. tachycardia likely from pain Medications Administered Discontinued Medications Generic Name Dose Route Start Last Admin Trade Name Freq PRN Reason Stop Dose Admin Lactated Ringer's 1,000 mls @ 999 mls/hr 09/13/24 15:38 09/13/24 17:06 Lr IV 09/13/24 16:38 Infused .Q1H1M ONE Infusion Morphine Sulfate 4 mg 09/13/24 15:38 09/13/24 16:04 Morphine Sulfate 4 Mg/Ml Cartridge IVPUSH 09/13/24 15:39 4 mg ONCE ONE Administration Protocol Nitrofurantoin Macrocrystals 100 mg 09/13/24 15:53 09/13/24 16:12 Nitrofurantoin Monohyd/M-Cryst 100 Mg Capsule PO 09/13/24 15:54 100 mg ONCE ONE Administration Nystatin 400,000 unit 09/13/24 15:53 09/13/24 16:13 Nystatin Oral Susp 500,000 Unit/5 Ml Oral.Susp BUCCAL 09/13/24 15:54 400,000 unit ONCE ONE Administration Protocol Potassium Chloride 40 meq 09/13/24 15:05 09/13/24 16:05 Potassium Chloride Er 20 Meq Tab.Er.Prt PO 09/13/24 15:06 40 meq ONCE ONE Administration Medical Decision Making Medical Decision Making MDM Narrative: 34-year-old female with medical history of bipolar disorder, PTSD, anemia, asthma, CKD, cervical cancer, presents to the ED due to throat tightness and right-sided flank pain. Patient states that she was started on keflex for kidney infection by her occupational therapy manager on 09/10. She states later that night after her 1st dose of antibiotic she began to experience sore throat and swelling making it difficult to swallow. She reports taking 7 doses of the antibiotic and stopped taking the medication yesterday. Did not finish the course of Keflex. She reports persistent R sided flank pain. VS show tachycardic rate at 112 BPM, otherwise stable. Lactic acid WNL, does not meet sepsis protocol at this time Patient tearful in mild distress due to R flank pain. Non toxic appearing. On physical exam patient's oropharynx erythematous with white patchy exudate, tongue with white patchy exudates highly suspect thrush. Uvula midline, no edema, airway patent, no submandibular or sublingual edema. O2 97% RA, no respiratory distress, no accessory muscle use. Patient has right-sided CVA tenderness to palpation. Abdomen soft nontender, no rigidity, no guarding, no rebound tenderness, negative Tomlinson's sign, no umbilical ecchymosis, no flank ecchymosis. Viral swabs, rapid strep swab negative. We will give IV fluids, medicate with 4 mg IV morphine, and give a dose of 100 mg MicroBid for kidney infection. At this time suspect candidiasis of the mouth, will medicate with nystatin swish and swallow. Course 17:12- patient's pain improved after iv morphine and fluids. HR WNL, afebrile. Recieved 40 mEq oral potassium before discharge. Will prescribe a 7 day course of macrobid for pyelonephritis, 7 day course of clotrimazole lozenge for oral candidiasis. Patient was urged to follow up with occupational therapy manager and PCP. Strict return precautions discussed. Differential Diagnosis Differential Diagnoses: The differential diagnosis associated with the presentation includes Pyelonephritis Thrush Electrolyte imbalance Strep throat UTI Admission/Observation Consideration of admission/observation: Escalation of care including admission/observation considered Lab Data MDM Lab Attestation statement: I reviewed the patient's lab results. 09/13/24 14:22 09/13/24 14:22 Labs: Lab Results 09/13/24 09/13/24 09/13/24 Range/Units 12:34 14:11 14:22 WBC 12.8 H (4.8-10.8) X10*3/uL RBC 4.34 (4.20-5.50) X10*6/uL Hgb 13.6 (12.0-16.0) g/dl Hct 36.6 L (37.0-47.0) % MCV 84.3 (80.0-98.0) fL MCH 31.3 (27.0-33.0) pg MCHC 37.2 H (31.0-35.0) g/dl RDW 13.1 (11.0-16.0) % Plt Count 356 D (160-400) X10*3/uL MPV 10.3 (9.4-12.3) fL Immature Gran % (Auto) 1.0 H (0.0-0.4) % Neut % (Auto) 68.4 (45-73) % Lymph % (Auto) 20.4 (20-40) % Bonner % (Auto) 8.8 (2-11) % Eos % (Auto) 0.9 (0-4) % Baso % (Auto) 0.5 (0-2) % Lymph # (Auto) 2.6 (1.2-4.9) X10*3/uL Bonner # (Auto) 1.1 (0.1-1.2) X10*3/uL Eos # (Auto) 0.1 (0.0-0.4) X10*3/uL Baso # (Auto) 0.1 (0.0-0.2) X10*3/uL Abs Immat Gran (auto) 0.13 H (0.00-0.03) X10*3/uL Absolute Neuts (auto) 8.8 H (2.0-8.3) x10*3/uL Absolute Nucleated RBC 0.000 (0.0-0.012) X10*3/uL Nucleated RBC % (auto) 0.0 (0.0-0.2) /100WBC Sodium 138 (135-145) mmol/L Potassium 2.8 L* (3.3-5.1) mmol/L Chloride 100 (96-108) mmol/L Carbon Dioxide 25 (22-29) mmol/L Anion Gap 16 (12-20) BUN 5 L (9-16) mg/dL Creatinine 1.08 (0.5-1.4) mg/dL Estim Creat Clear Calc 61.5 Estimated GFR 58 Random Glucose 109 (60-115) mg/dL Lactic Acid (0.5-2.0) mmol/L Calcium 9.4 (8.4-10.2) mg/dL Magnesium 2.3 (1.6-2.6) mg/dL Total Bilirubin 0.6 (0.0-1.0) mg/dL Direct Bilirubin 0.3 (0.0-0.5) mg/dL AST 35 H (5-31) U/L ALT 26 (0-31) U/L Alkaline Phosphatase 151 H (39-117) U/L Troponin I High Sens < 2.7 (<3.5-17.0) ng/L Total Protein 7.9 (6.5-8.0) g/dL Albumin 4.1 (3.5-5.0) g/dL Lipase 8 (8-78) U/L Urine Color Yellow Urine Appearance Clear Urine pH 6.0 (5.0-9.0) Ur Specific Hammond 1.010 (1.005-1.025) Urine Protein Trace (Neg-Trace) mg/dL Urine Glucose (UA) >=1000 H (Negative) mg/dL Urine Ketones Negative (Negative) mg/dL Urine Blood Trace H (Negative) Urine Nitrite Negative (Negative) Ur Leukocyte Esterase Trace H (Negative) Urine RBC 0-2 (0-2) /HPF Urine WBC 6-10 H (0-5) /HPF Ur Squamous Epith Cells 0-2 (0-2) /HPF Urine Bacteria None Seen (None Seen) Hyaline Casts 0-2 (0-2) /LPF Urine Test NEGATIVE (NEGATIVE) Monoscreen Negative (Negative) Influenza Type A (PCR) NEGATIVE (Negative) Influenza Type B (PCR) NEGATIVE (Negative) RSV RNA Qual (PCR) NEGATIVE (Negative) SARS-CoV-2 RNA (RT-PCR) NEGATIVE (Negative) S. pyogenes GrpA CHARLEE Negative (Negative) 09/13/24 Range/Units 16:04 WBC (4.8-10.8) X10*3/uL RBC (4.20-5.50) X10*6/uL Hgb (12.0-16.0) g/dl Hct (37.0-47.0) % MCV (80.0-98.0) fL MCH (27.0-33.0) pg MCHC (31.0-35.0) g/dl RDW (11.0-16.0) % Plt Count (160-400) X10*3/uL MPV (9.4-12.3) fL Immature Gran % (Auto) (0.0-0.4) % Neut % (Auto) (45-73) % Lymph % (Auto) (20-40) % Bonner % (Auto) (2-11) % Eos % (Auto) (0-4) % Baso % (Auto) (0-2) % Lymph # (Auto) (1.2-4.9) X10*3/uL Bonner # (Auto) (0.1-1.2) X10*3/uL Eos # (Auto) (0.0-0.4) X10*3/uL Baso # (Auto) (0.0-0.2) X10*3/uL Abs Immat Gran (auto) (0.00-0.03) X10*3/uL Absolute Neuts (auto) (2.0-8.3) x10*3/uL Absolute Nucleated RBC (0.0-0.012) X10*3/uL Nucleated RBC % (auto) (0.0-0.2) /100WBC Sodium (135-145) mmol/L Potassium (3.3-5.1) mmol/L Chloride (96-108) mmol/L Carbon Dioxide (22-29) mmol/L Anion Gap (12-20) BUN (9-16) mg/dL Creatinine (0.5-1.4) mg/dL Estim Creat Clear Calc Estimated GFR Random Glucose (60-115) mg/dL Lactic Acid 1.3 (0.5-2.0) mmol/L Calcium (8.4-10.2) mg/dL Magnesium (1.6-2.6) mg/dL Total Bilirubin (0.0-1.0) mg/dL Direct Bilirubin (0.0-0.5) mg/dL AST (5-31) U/L ALT (0-31) U/L Alkaline Phosphatase (39-117) U/L Troponin I High Sens (<3.5-17.0) ng/L Total Protein (6.5-8.0) g/dL Albumin (3.5-5.0) g/dL Lipase (8-78) U/L Urine Color Urine Appearance Urine pH (5.0-9.0) Ur Specific Hammond (1.005-1.025) Urine Protein (Neg-Trace) mg/dL Urine Glucose (UA) (Negative) mg/dL Urine Ketones (Negative) mg/dL Urine Blood (Negative) Urine Nitrite (Negative) Ur Leukocyte Esterase (Negative) Urine RBC (0-2) /HPF Urine WBC (0-5) /HPF Ur Squamous Epith Cells (0-2) /HPF Urine Bacteria (None Seen) Hyaline Casts (0-2) /LPF Urine Test (NEGATIVE) Monoscreen (Negative) Influenza Type A (PCR) (Negative) Influenza Type B (PCR) (Negative) RSV RNA Qual (PCR) (Negative) SARS-CoV-2 RNA (RT-PCR) (Negative) S. pyogenes GrpA CHARLEE (Negative) Independent Interpretation I performed an independent interpretation of an: EKG Interpretation: I performed an independent interpretation of the EKG Vent. Rate : 104 BPM Atrial Rate : 104 BPM P-R Int : 132 ms QRS Dur : 98 ms QT Int : 334 ms P-R-T Axes : 41 26 13 degrees QTcB Int : 439 ms Sinus tachycardia RSR' or QR pattern in V1 suggests right ventricular conduction delay Borderline ECG External Record Review External record reviewed: Inpatient record, Office record and Outpatient record Chronic Conditions Patient?s care impacted by: Other (CKD) Discharge Plan Discharge Clinical Impression: Pyelonephritis, Candidiasis of mouth Patient Disposition: Home, Self-Care Instructions: Oral Candidiasis (ED), Kidney Infection (ED) Additional Instructions: You were evaluated in the emergency department today due to mouth pain and right flank pain. Your lab work revealed an elevated white blood cell count indicating that there is an infectious process going on. Your lab work also revealed that you had a low potassium count at 2.8. You were given 80 mEq of oral potassium to replete. Your urine did not show any evidence of infection however it did show an increased glucose which you should follow up with your PCP about. You were given IV fluids, pain was treated with 4 mg of IV morphine. You were given oral potassium tablets for repletion. You were given a course of nystatin swish and swallow for the thrush in her mouth. You were given 1 dose of Macrobid for your kidney infection while in the department. You will be treated for pyelonephritis with a 7 day course of Macrobid an antibiotic that will treat your infection. Please complete the entire course of medication. You will be prescribed a 7 day course of an oral antifungal medication to treat the yeast in your mouth. Please complete the entire course of medication. It is important for you to follow up with your occupational therapy manager in your PCP to ensure improvement. Please return to the ED if you have fever over 100.4?, worsening flank pain, abdominal pain, nausea, vomiting, worsening throat pain, difficulty breathing, blood in the urine, or any other new/worsening/concerning symptoms. Prescriptions: New clotrimazole 10 mg nayana 10 mg mucous membrane TID Qty: 21 0RF nitrofurantoin monohyd/m-cryst [Macrobid] 100 mg capsule 100 mg PO BID Qty: 14 0RF Rx Instructions: must administer with a meal/food No Action lorazepam 0.5 mg Tablet 0.5 mg PO BID paroxetine HCl [Paxil] 20 mg Tablet 20 mg PO DAILY oxycodone 30 mg Tablet 30 mg PO Q3H PRN (Reason: Pain) albuterol sulfate [ProAir HFA] 90 mcg/actuation Hfa Aerosol Inhaler 2 puff INHALATION Q6H PRN (Reason: Shortness Of Breath) oxycodone [OxyContin] 10 mg Tablet,Oral Only,Ext.Rel.12 Hr 10 mg PO BID oxcarbazepine [Trileptal] 150 mg tablet 150 mg PO BID Qty: 14 0RF amoxicillin-pot clavulanate 875-125 mg tablet 1 tab PO BID 7 Days Qty: 14 0RF ciprofloxacin-dexamethasone [Ciprodex] 0.3-0.1 % drops,suspension 4 drp otic (ear) right BID 7 Days Qty: 7.5 0RF cyclobenzaprine 5 mg tablet 5 mg PO TID PRN (Reason: muscle spasm) 7 Days Qty: 21 0RF omeprazole 20 mg capsule,delayed release(DR/EC) 20 mg PO DAILY Qty: 14 0RF Print Language: Guatemalan
[2024-09-13 12:46] LABS: IDNOW Serial# 55D5AD1C; Strep A Nucleic Acid Negative (Negative)
[2024-09-13 13:18] LABS: Influenza A PCR NEGATIVE (Negative); Influenza B PCR NEGATIVE (Negative); Resp Syncy Virus RNA Qual PCR NEGATIVE (Negative); SARS COV2 PCR INHOUSE NEGATIVE (Negative)
[2024-09-13 14:07] VITALS: BP 142/86; PULSE 97; RESP 19; TEMP 37.1; O2SAT 97
[2024-09-13 14:29] LABS: MANUAL DIFF FLAG NO
[2024-09-13 14:32] LABS: Basophils Absolute Auto 0.1 X10*3/uL (0.0-0.2); Basophils Percent Auto 0.5 % (0-2); Eosinophils Absolute Auto 0.1 X10*3/uL (0.0-0.4); Eosinophils Percent Auto 0.9 % (0-4); Hematocrit 36.6 % (37.0-47.0); Hemoglobin 13.6 g/dl (12.0-16.0); Imm Gran Abs Auto 0.13 X10*3/uL (0.00-0.03); Lymphocytes Absolute Auto 2.6 X10*3/uL (1.2-4.9); Lymphocytes Percent Auto 20.4 % (20-40); Mean Corpuscular HGB Conc 37.2 g/dl (31.0-35.0); Mean Corpuscular Hemoglobin 31.3 pg (27.0-33.0); Mean Corpuscular Volume 84.3 fL (80.0-98.0); Mean Platelet Volume 10.3 fL (9.4-12.3); Monocytes Absolute Auto 1.1 X10*3/uL (0.1-1.2); Monocytes Percent Auto 8.8 % (2-11); Neutrophils Absolute Auto 8.8 x10*3/uL (2.0-8.3); Neutrophils Percent Auto 68.4 % (45-73); Platelet Count 356 X10*3/uL (160-400); Red Blood Count 4.34 X10*6/uL (4.20-5.50); Red Cell Distribution Width 13.1 % (11.0-16.0); White Blood Count 12.8 X10*3/uL (4.8-10.8)
[2024-09-13 14:35] LABS: Appearance Urine Clear; Color Urine Yellow; Glucose Urine UA >=1000 mg/dL (Negative); Leukocyte Esterase Urine Trace (Negative); Nitrite Urine Negative (Negative); UMIC TRIGGER UACC YES; Urine Blood Trace (Negative); Urine Ketones Negative (Negative); Urine Protein Trace mg/dL (Neg-Trace)
[2024-09-13 14:37] LABS: UPreg QC Valid YES; Urine Pregnancy NEGATIVE (NEGATIVE)
[2024-09-13 14:45] LABS: Monotest Negative (Negative)
[2024-09-13 14:47] LABS: Bacteria Urine None Seen (None Seen); Hyaline Casts Urine 0-2 /LPF (0-2); RBC Urine 0-2 /HPF (0-2); Squamous Epithelial Cell Urine 0-2 /HPF (0-2); UACC Culture Trigger YES
[2024-09-13 14:57] LABS: Alanine Aminotransferase 26 U/L (0-31); Albumin Level 4.1 g/dL (3.5-5.0); Alkaline Phosphatase 151 U/L (39-117); Anion Gap 16 (12-20); Aspartate Amino Transferase 35 U/L (5-31); Bilirubin Direct 0.3 mg/dL (0.0-0.5); Bilirubin Total 0.6 mg/dL (0.0-1.0); Blood Urea Nitrogen 5 mg/dL (9-16); Calcium 9.4 mg/dL (8.4-10.2); Carbon Dioxide 25 mmol/L (22-29); Chloride 100 mmol/L (96-108); Creatinine Clr Calc Pharmacy 61.5; Estimated Glomerular Filt Rate 58; Glucose Random 109 mg/dL (60-115); Lipase 8 U/L (8-78); Magnesium 2.3 mg/dL (1.6-2.6); Potassium 2.8 mmol/L (3.3-5.1); Sodium 138 mmol/L (135-145); Total Protein 7.9 g/dL (6.5-8.0)
--- NOTE | 2024-09-13 14:58 | ECG_ITS ---
Test Reason : HYPOKALEMIA Blood Pressure : */* mmHG Vent. Rate : 104 BPM Atrial Rate : 104 BPM P-R Int : 132 ms QRS Dur : 98 ms QT Int : 334 ms P-R-T Axes : 41 26 13 degrees QTcB Int : 439 ms Sinus tachycardia RSR' or QR pattern in V1 suggests right ventricular conduction delay Borderline ECG When compared with ECG of 05-Nov-2022 11:30, No significant change was found Referred By: Leigh Ann Bahena Electronically Signed By: RENATE GREGORY
[2024-09-13 15:44] LABS: Troponin-I High Sensitivity < 2.7 ng/L (<3.5-17.0)
[2024-09-13] MEDS: Morphine Sulfate 4 MG/ML CARTRIDGE IVPUSH (16:04)
[2024-09-13] MEDS: Potassium Chloride ER 20 MEQ TAB.ER.PRT 40 MEQ PO ×2 (16:05→17:54)
[2024-09-13] MEDS: Lactated Ringers 1,000 ML 999 ML IV (16:05)
--- OUTSIDE RECORDS SUMMARY | 2024-09-13 16:11 | XMS_ITS | Encounter Summary ---
Author Organization [facility] Address [address] [place] [address] Phone Care Team Providers Care Film Composer Name Role Phone Jose Newby MD Primary Care Provider [phone] Reason for Visit * Reason Onset Date Comments Med Refill 09/10/2024 Encounter Details Date Type Department Care Team (Late Contact Info) Description 09/10/2024 [facility]ill [facility] [address] [place] [address] [place] [address] [place] [phone] Social History Tobacco Use Types Packs/Day Years Used Date Smoking Tobacco: Never Assessed Alcohol Use Standard Drinks/Week Comments Yes 0 (1 standard drink = 0.6 oz pure alcohol) Alcoholic Drinks/day: Occasional social drink Comments Unknown Sex and Gender Information Value Date Recorded Sex Assigned at Not on file Legal Sex Female 4:34 PM EST Gender Identity Not on file Sexual Orientation Not on file documented as of this encounter Plan of Treatment Upcoming Encounters Date Type Department Care Team (Late Contact Info) Description 11/27/2024 9:50 AM EDT Office Visit [facility] [address] [address] Nehemias Nobles MD [address] [place] [place] [phone] documented as of this encounter Visit Diagnoses Not on filedocumented in this encounter Care Teams Film Composer Relationship Specialty Start Date End Date Jose Newby MD [address] [place] [address] PCP - General Internal Medicine 05/11/24 documented as of this encounter
[2024-09-13] MEDS: Nitrofurantoin Monohyd/M-Cryst 100 MG CAPSULE PO (16:12)
[2024-09-13] MEDS: Nystatin Oral Susp 500,000 UNIT/5 ML ORAL.SUSP 400000 UNIT BUCCAL (16:13)
[2024-09-13 16:35] LABS: Lactic Acid 1.3 mmol/L (0.5-2.0)
[2024-09-13 17:58] VITALS: BP 125/77; PULSE 75; RESP 16; TEMP 36.9; O2SAT 97
[2024-09-13 17:59] VITALS: BP 125/77; PULSE 75; RESP 16; TEMP 36.9; O2SAT 97
== END 2024-09-13 18:00 | disposition home or self-care (01) ==
PROVIDERS: Physician Assistant; Emergency Provider Emergency Medicine Emergency Medical Services
DX: B37.0 Candidal stomatitis (principal); N12 Tubulo-interstitial nephritis, not specified as acute or chronic; E87.6 Hypokalemia; R10.2 Pelvic and perineal pain; R00.0 Tachycardia, unspecified; Z79.899 Other long term (current) drug therapy; Z03.818 Encounter for observation for suspected exposure to other biological agents ruled out
CPT/HCPCS: 0241U; 36415; 80048; 80076; 81001; 81025; 83605; 83690; 83735; 84484; 85025; 86308; 87040; 87086; 87651; 93005; 96361; 96374; 99284; 99285; J2270; J7120

== ENCOUNTER → 2024-09-13 14:58 | Outpatient (BNV) | payer OTHER, SELFPAY | PROVIDERS: Emergency Provider Emergency Medicine Emergency Medical Services; Visit Provider Internal Medicine | DX: R00.0 Tachycardia, unspecified (principal) | CPT/HCPCS: 93010 ==